=== PATIENT | female | born 1995 | race Hispanic/Latino ===

== ENCOUNTER 2018-09-18 09:39 | Emergency (ER) | payer BC ==
[~2018-09-18] VITALS: Ht 154.9 cm; Wt 100.7 kg
--- OUTSIDE RECORDS SUMMARY | 2018-09-18 09:41 | XMS REPORT ---
Author Author [facility] Address Unknown Phone Unavailable Care Team Providers Care Buckshot Swage Operator Name Role Phone Unavailable Unavailable Problems This patient has no known problems. Allergies, Adverse Reactions, Alerts This patient has no known allergies or adverse reactions. Medications This patient has no known medications. Encounters Start Date/Time End Date/Time Encounter Type Admission Type Attending [facility] Care Facility Care Department Encounter ID 2018-09-18 06:34:00 2018-09-18 06:34:00 Emergency [facility] [id number] 2018-09-18 00:00:00 2018-09-18 00:00:00 Emergency [facility] [id number] 2016-11-21 00:00:00 2016-11-21 00:00:00 Outpatient [facility] [id number] 2016-10-24 00:00:00 2016-10-24 00:00:00 Outpatient [facility] [id number]
--- OUTSIDE RECORDS SUMMARY | 2018-09-18 09:41 | XMS REPORT | Clinical Summary ---
Author Author [facility] Organization [facility] Address Unknown Phone Unavailable Care Team Providers Care Crime Prevention Police Officer Name Role Phone Lucia Larsen REGULATORY AUDITOR PCP Allergies No Known Allergies Medications End Date Status Medication Sig Dispensed Refills Start Date Active ibuprofen (MOTRIN) 200 mg Take 2-3 200 30 tablet 0 tabletIndications: mg tablets 4 Headache(784.0) every 8-12 as needed for RICE pain. Take in the morning and repeat in evening.. Active topiramate (TOPAMAX) 50 Take 1 tablet 30 tablet 6 mg tabletIndications: by mouth at 4 Migraine bedtime nightly. Active hydrocortisone 1 % Apply to 28.35 g 0 topical creamIndications: affected area 4 Atopic dermatitis 2 times daily. Active desogestrel-ethinyl Take 1 tablet 84 Each 4 estradiol (VELIVET) by mouth 4 0.1/.125/.15-25 mg-mcg daily. tabletIndications: PCOS (polycystic ovarian syndrome), Irregular menstrual cycle, Morbid obesity, Acquired acanthosis nigricans Active norgestimate-ethinyl Take 1 tablet 84 tablet 4 estradiol (ORTHO by mouth 4 TRI-CYCLEN LO) daily. Auto 0.18/0.215/0.25 mg-25 mcg Sub for (28) tablet Velivet Active Problems Problem Noted Date Chest pain in adult 07/26/2016 Elevated fasting lipid profile-- HDL and TGs high risk 04/11/2016 Tinnitus 04/01/2016 Normal hearing 04/01/2016 BMI (body mass index), pediatric, 95-99% for age 0611/05/2013 Acquired acanthosis nigricans 11/05/2013 Irregular menstrual cycle 11/05/2013 Allergic rhinitis, cause unspecified 09/02/2011 Menstrual cramps 09/02/2011 Conjunctivitis unspecified 09/02/2011 Eye problems 07/03/2007 Myopia 07/03/2007 Encounters Care Team Description Date Type Specialty 09/18/2018 Emergency Emergency Medicine 09/18/2018 Travel after 09/17/2017 Immunizations Name Dates Previously Given Next Due Acetaminophen Syrup 09/04/2006 160mg/5ml Btl DTaP Diphtheria, Tetanus, 04/11/2003, 01/14/2000, 08/11/1998, 05/11/1998, Acellular, Pertussis 02/20/1998 Hepatitis A Vaccine 04/11/2003, 11/19/2000 Hepatitis B Vaccine 04/11/2003, 11/29/2000, 05/23/2000 Hib Haemophilus 01/14/2000, 05/11/1998, 02/20/1998 Influenzae Type B Human Papillomavirus 09/30/2015, 06/17/2013, 09/02/2011 10/15/2013 Vaccine Influenza Vaccine 09/30/2015, 06/17/2013, 09/02/2011, 03/20/2007 MCV4 Meningococcal 09/30/2015, 12/30/2008 2013 Conjugate (Menactra) MENINGOCOCCAL Recombinant 12/03/2015, 09/30/2015 W/OMV VACCINE(BEXSERO) MMR Measles, Mumps, 12/25/1998 Rubella Vaccine Measles only 10/12/2001 PPD 09/04/2006 Poliovirus Ipv 04/11/2003, 10/12/2001, 08/11/1998, 05/11/1998, 02/20/1998 Tdap Tetanus, diphtheria, 12/30/2008 acellular pertussis Vaccine Varicella Vaccine Pedi In 03/20/2007, 04/11/2003 Clinic Family History Medical History Relation Name Comments Heart Maternal had heart attack at 52 years of age Grandfather Cancer Other Mothers grandmother had cancer Pulmonary Paternal Grandfather Relation Name Status Comments Brother Alive Father Alive Maternal Grandfather due to heart attack (Age 58) Maternal Grandmother Alive Mother Alive Other Paternal Grandfather due to aspiration (Age 52) Paternal Grandmother Alive Social History Date Tobacco Use Types Packs/Day Years Used Never Smoker Smokeless Tobacco: Never Used Tobacco Cessation: Counseling Given: No Alcohol Use Drinks/Week oz/Week Comments No Sex Assigned at Date Recorded Not on file Industry Job Start Date Occupation Not on file Not on file Not on file Travel End Travel History Travel Start No recent travel history available. Last Filed Vital Signs Time Taken Vital Sign Reading 09/18/2018 6:38 AM CDT Blood Pressure 118/81 09/18/2018 6:38 AM CDT Pulse 92 09/18/2018 6:38 AM CDT Temperature 37.2 C (99 F) 09/18/2018 6:38 AM CDT Respiratory Rate 18 09/18/2018 6:38 AM CDT Oxygen Saturation 96% - Inhaled Oxygen - Concentration - Weight - - Height - - Body Mass Index - Plan of Treatment Health Maintenance Due Date Last Done Comments IMM Influenza Seasonal 02/19/2019Feb to July (>/=19 yrs) Goals Goal Patient Associated Recent Progress Patient-Stat Author Goal Type Problems ed? Decrease soda or juice intake Diet No Rima Castellanos LD Reduce fast food intake Diet No Rima Castellanos LD Increase physical activity Lifestyle No Rima Castellanos LD Results Not on fileafter 09/17/2017 Insurance Type Payer Benefit Subscriber ID Effective Phone Address Plan / Dates Group BC/BS BC/BS PPO xxxxxxxxxxxx 2018-P [phone] [address] [place] [address] (Work)
[2018-09-18] MEDS ORDERED: KETOROLAC TROMETHAMINE 30 MG/ML VIAL IV STA (10:19)
[2018-09-18] MEDS ORDERED: ONDANSETRON HCL INJ 2MG/ML 2ML 2 MG/ML VIAL IV STA (10:19)
[2018-09-18] MEDS ORDERED: SODIUM CHLORIDE 0.9% 1000ML 1,000 ML IV SCH (10:30)
[2018-09-18] MEDS ORDERED: METRONIDAZOLE 500MG/NS 100ML 100 ML IV ONE (10:45)
--- NOTE | 2018-09-18 12:17 | Diagnostic Imaging Report ---
EXAM: Right upper quadrant abdominal ultrasound INDICATION: Right upper quadrant pain COMPARISON: None. TECHNIQUE: Transverse and longitudinal images of the right upper quadrant abdomen were obtained FINDINGS: Liver: Size: 15 cm in the right midclavicular line, normal Appearance: Increased echogenicity, smooth contour Mass: No focal masses Gallbladder: No distention, pericholecystic fluid, wall thickening, stone, or reported sonographic Glover's sign. Gallbladder wall measures 0.2 cm. There is minimal gallbladder sludge. Bile Ducts: Intrahepatic Ducts: No dilatation Extrahepatic Ducts: Common bile duct measures 0.3 cm, no dilatation Pancreas: Not well visualized. Kidney: The right kidney measures 10.4 cm without evidence of hydronephrosis or stone. Vessels: Aorta: Visualized portions are normal Inferior Vena Cava: Visualized portions are normal Main Portal Vein: 0.7 cm, normal size with hepatopetal flow. Free Fluid: No evidence of ascites. IMPRESSION: Hepatic steatosis. Minimal gallbladder sludge without sonographic evidence of cholelithiasis or cholecystitis. Signed by: Dr. Gill Conley MD on 09/18/2018 12:14 PM
[2018-09-18] MEDS ORDERED: CIPROFLOXACIN 500 MG TAB PO STA (12:40)
[2018-09-18 13:15] VITALS: BP 111/54
== END 2018-09-18 13:17 | disposition home or self-care (01) ==
LOC: FSED 09:39
DX: K80.20 Calculus of gallbladder without cholecystitis without obstruction (principal); R10.11 Right upper quadrant pain; R10.13 Epigastric pain; R11.2 Nausea with vomiting, unspecified
CPT/HCPCS: 76705; 81003; 81025; 99284; J1885; J2405; J7030

== ENCOUNTER 2018-10-03 20:25 | Observation (INO) | payer BC ==
[~2018-10-03] VITALS: Ht 154.9 cm; Wt 107.0 kg
--- OUTSIDE RECORDS SUMMARY | 2018-10-03 20:28 | XMS REPORT | Clinical Summary ---
Author Author [facility] Organization [facility] Address Unknown Phone Unavailable Care Team Providers Care Actuarial Consultant Name Role Phone Lucia Larsen MULTIFOCAL LENS ASSEMBLER PCP Allergies No Known Allergies Medications End [...] tablet Velivet Active Problems Problem Noted Date Dysmenorrhea 09/18/2018 Chest pain in adult 07/26/2016 Elevated fasting lipid profile-- HDL and TGs high risk 04/11/2016 Tinnitus 04/01/2016 Normal hearing 04/01/2016 Acquired acanthosis nigricans 11/05/2013 Irregular menstrual cycle 11/05/2013 Allergic rhinitis, cause unspecified 09/02/2011 Eye problems 07/03/2007 Myopia 07/03/2007 Resolved Problems Problem Noted Date Resolved Date BMI (body mass index), pediatric, 95-99% for age 0611/05/2013 09/18/2018 Menstrual cramps 09/02/2011 09/18/2018 Conjunctivitis unspecified 09/02/2011 09/18/2018 Encounters Care Team Description Date Type Specialty 09/18/2018 Emergency Emergency Medicine 09/18/2018 Travel after 10/02/2017 Immunizations Name Dates Previously Given Next Due [...] Body Mass Index - Plan of Treatment Care Team Description Date Type Specialty Robb Looney MD [address] [place] [address] stomach pain, blood when goes to the restroom. advised of sdc and amn. 10/11/2018 Office Visit Family Practice Health Maintenance Due Date Last Done Comments IMM Influenza Seasonal 02/19/2019Feb to July (>/=19 yrs) Goals Goal Patient Associated Recent Progress Patient-Stat Author Goal Type Problems ed? Decrease soda or juice intake Diet No Rima Castellanos LD Reduce fast food intake Diet No Rima Castellanos LD Increase physical activity Lifestyle No Rima Castellanos LD Results Not on fileafter 10/02/2017 Insurance Type Payer Benefit Subscriber ID Effective Phone Address Plan / Dates Group BC/BS BC/BS PPO xxxxxxxxxxxx 2018-P [phone] [id number] [place] [address] [facility] SELF-PAY SELF-PAY xxxxxx 2018-2 [address] [place] [address] Darlene Vines Self 1995 [address] ([address]) [address] [place] [address] (Work)
[2018-10-03] MEDS ORDERED: ONDANSETRON HCL INJ 2MG/ML 2ML 2 MG/ML VIAL IV STA (21:48)
[2018-10-03] MEDS ORDERED: MORPHINE SULFATE 5 MG/ML VIAL IV ONE (22:00)
[2018-10-03] MEDS ORDERED: ONDANSETRON HCL INJ 2MG/ML 2ML 2 MG/ML VIAL ONE (22:33)
--- NOTE | 2018-10-03 23:53 | Diagnostic Imaging Report ---
EXAM: Right Upper Quadrant Ultrasound INDICATION: Right upper quadrant pain COMPARISON: Right upper quadrant ultrasound 09/18/2018 TECHNIQUE: Transverse and longitudinal images of the right upper abdomen were obtained. FINDINGS: Exam limited by Liver: Size: 14.9 cm in the right midclavicular line, normal Appearance: Increased echogenicity, smooth contour Mass: No focal masses Gallbladder: Stones/Sludge: Small amount of sludge noted in the gallbladder lumen. No echogenic stones Wall: 0.2 cm Appearance: No wall thickening, pericholecystic fluid or hydrops. Sonographic Glover's Sign: Negative Bile Ducts: Intrahepatic Ducts: No dilatation Extrahepatic Ducts: Common bile duct measures 0.4 cm, no dilatation Pancreas: Visualized portions of the pancreatic neck are normal. Kidneys: Length: Right 10.4 cm Echogenicity: Normal Collecting System: No hydronephrosis Stone: None Cyst/Mass: None Vessels: Aorta: Visualized portions are normal Inferior Vena Cava: Visualized portions are normal Main Portal Vein: 0.7 cm, normal size with hepatopetal flow. Free Fluid: No ascites or pleural effusion IMPRESSION: 1. Small amount of sludge in the gallbladder lumen. No echogenic stones or sonographic evidence of cholecystitis. No significant interval change since the prior exam performed approximately 2 weeks ago. 2. Hepatic steatosis. Signed by: Dr. Maurice Suarez M.D. on 10/03/2018 11:50 PM
[2018-10-04] VITALS (9 sets, daily range): BP systolic 101–126; BP diastolic 61–86
[2018-10-04] MEDS ORDERED: ONDANSETRON HCL INJ 2MG/ML 2ML 2 MG/ML VIAL IV PRN (00:30)
--- OUTSIDE RECORDS SUMMARY | 2018-10-04 00:36 | XMS REPORT | Clinical Summary ---
Author Author [facility] Organization [facility] Address Unknown Phone Unavailable Care Team Providers Care Supervisor Packing Name Role Phone Lucia Larsen DOCK GUARD PCP Allergies No Known Allergies Medications End [...] 09/18/2018 Emergency Emergency Medicine 09/18/2018 Travel after 10/03/2017 Immunizations Name Dates Previously Given Next Due [...] Description Date Type Specialty Robb Looney MD [address] [place] [address] stomach pain, blood when goes [...] Rima Castellanos LD Results Not on fileafter 10/03/2017 Insurance Type Payer Benefit Subscriber ID Effective Phone Address Plan / Dates Group BC/BS BC/BS PPO xxxxxxxxxxxx 2018-P [phone] [place] [address] [facility] SELF-PAY SELF-PAY xxxxxx 2018-2 [address] [place] [address] Darlene Vines Self 1995 [address] ([address]) [address] [place] [address] (Work)
--- NOTE | 2018-10-04 00:59 | NUR ---
[facility] CALLED FOR TRANSPORT
[2018-10-04] MEDS: SODIUM CHLORIDE 0.9% 1000ML 1,000 ML IV SCH ×3 (02:45→16:19)
--- NOTE | 2018-10-04 02:45 | NUR ---
RECEIVED PATIENT IN STABLE CONDITION, NO DISTRESS NOTED. SHE IS A0X3, VITALS IN GOOD CONDITION, AND STATES PAIN IS CONTROLLABLE. THE PATIENT VOICES UNDERSTANDING OF NPO ORDER AND WILL COMPLY. IV IS PATENT AND INTACT, CALL LIGHT WITHIN REACH, AND WILL CONTINUE TO MONITOR.
[2018-10-04] MEDS: PIPER-TAZ 3.375 GM 50 ML IV SCH ×3 (05:28→22:50)
[2018-10-04] MEDS ORDERED: HYDRALAZINE HCL 20 MG/ML VIAL IV PRN (07:45)
[2018-10-04] MEDS ORDERED: ACETAMINOPHEN 325 MG TAB PO PRN (07:45)
[2018-10-04 08:15] LABS: BASOPHILS # (AUTO) 0.1 (0.0-0.1); BASOPHILS % 0.5 % (0.0-1.0); EOSINOPHILS # (AUTO) 0.2 (0.0-0.4); EOSINOPHILS % 1.6 % (0.0-6.0); HEMATOCRIT 41.7 % (34.2-44.1); HEMOGLOBIN 13.9 g/dL (12.0-16.0); LYMPHOCYTES # (AUTO) 3.9 (1.0-3.2); LYMPHOCYTES % 31.9 % (18.0-39.1); MEAN CORPUSCULAR HEMOGLOBIN 28.7 pg (28-32); MEAN CORPUSCULAR HGB CONC 33.3 g/dL (31-35); MEAN CORPUSCULAR VOLUME 86.2 fL (81-99); MONOCYTES # (AUTO) 0.8 (0.2-0.8); MONOCYTES % 6.2 % (4.4-11.3); NEUTROPHILS # (AUTO) 7.2 (2.1-6.9); NEUTROPHILS % 59.3 % (38.7-80.0); PLATELET COUNT 276 x10e3/uL (140-360); RED BLOOD COUNT 4.84 x10e6/uL (3.6-5.1); RED CELL DISTRIBUTION WIDTH 13.2 % (11.7-14.4)
[2018-10-04] MEDS: FAMOTIDINE 20 MG/2 ML VIAL IV SCH ×2 (08:32→16:30)
[2018-10-04 09:05] LABS: ANION GAP 10.7 mmol/L (8-16); BLOOD UREA NITROGEN 7 mg/dL (7-26); BUN/CREATININE RATIO 10 (6-25); CALCIUM 9.2 mg/dL (8.4-10.2); CARBON DIOXIDE 26 mmol/L (22-29); CHLORIDE 104 mmol/L (98-107); CREATININE, SERUM 0.67 mg/dL (0.57-1.11); EST GLOMERULAR FILTRATION RATE > 60 ML/MIN (60-); GLUCOSE 100 mg/dL (74-118); MAGNESIUM 2.3 MG/DL (1.3-2.1); POTASSIUM 3.7 mmol/L (3.5-5.1); SODIUM 137 mmol/L (136-145)
[2018-10-04] MEDS ORDERED: FENTANYL CITRATE/PF 100MCG/2 ML INJ ONE (14:17)
[2018-10-04] MEDS ORDERED: MIDAZOLAM HCL 2 MG/2 ML VIAL ONE (14:17)
--- NOTE | 2018-10-04 14:18 | NUR ---
patient back from Hepato biliary scan, stable
[2018-10-04] MEDS ORDERED: BUPIVACAINE 0.25%/EPI 30ML SDV INJ ONE (14:25)
[2018-10-04] MEDS ORDERED: SEVOFLURANE INHAL SOLN 250 ML PEN BTL ONE (14:40)
[2018-10-04] MEDS ORDERED: LIDOCAINE HCL 2% LOCAL INJ 5 ML SDV VIAL INJ ONE (14:40)
[2018-10-04] MEDS ORDERED: KETOROLAC TROMETHAMINE 30 MG/ML VIAL ONE (14:40)
[2018-10-04] MEDS ORDERED: NEOSTIGMINE 5 MG/5ML SYR ONE (14:40)
[2018-10-04] MEDS ORDERED: ONDANSETRON HCL INJ 2MG/ML 2ML 2 MG/ML VIAL ONE (14:40)
[2018-10-04] MEDS ORDERED: ROCURONIUM BROMIDE 10 MG/ML 5ML VIAL ONE (14:40)
[2018-10-04] MEDS ORDERED: DEXAMETHASONE SOD PHOS INJ 4 MG/ML VIAL ONE (14:40)
[2018-10-04] MEDS ORDERED: PROPOFOL IV EMULSION 10 MG/ML 20 ML VIAL ONE (14:40)
[2018-10-04] MEDS ORDERED: ATROPINE SULFATE 1 MG/ML VIAL ONE (14:40)
[2018-10-04] MEDS: MORPHINE SULFATE INJ 4 MG/ML INJ 1ML IV PRN (15:07)
--- NOTE | 2018-10-04 15:21 | NUR ---
patient off the unit for surgery, stable
--- NOTE | 2018-10-04 16:32 | Diagnostic Imaging Report ---
Hepatobiliary Scan with Gallbladder Ejection Fraction Clinical information: 22 F with abdominal pain associated with nausea, vomiting and diarrhea Technique: Following intravenous administration of 6.6 millicuries of Tc-99m mebrofenin, dynamic images of the abdomen in the anterior projection were obtained through 60 minutes. Sincalide (CCK analog) 2.0 micrograms was administered intravenously over 30 minutes with additional imaging for determination of gallbladder ejection fraction. Discussion: Perfusion of the liver is normal. Extraction of tracer by the liver parenchyma is normal. Tracer appears promptly within the biliary tract. The gallbladder begins to fill by 42 minutes post injection of tracer and fills adequately. Tracer is seen in the small bowel by 10 minutes. The gallbladder ejection fraction with sincalide is 30% (normal greater than 40%). Impression: 1. Filling of the gallbladder excludes acute cystic duct obstruction/acute cholecystitis. 2. The decreased gallbladder ejection fraction of 30% supports the clinical diagnosis of chronic cholecystitis/gallbladder dyskinesia. Signed by: Dr. Kellee Bermudez M.D. on 10/04/2018 4:29 PM
--- NOTE | 2018-10-04 18:24 | NUR ---
Recvd patient from PACU, AAOx3, 4 trochar site on the abdomen, bandage is intact , abdomen is soft. not in any distress, call light in reach, encouraged her to use that for any assistance, side rails up, bed locked, lowest position. keep monitoring
--- NOTE | 2018-10-04 19:00 | NUR ---
received report from day nurse. patient is resting in bed. mother is by bedside. patient denies pain or discomfort. bed is in the lowest position and call gaona is within reach. will continue to monitor patient's care.
--- NOTE | 2018-10-04 22:31 | Consultation ---
DATE OF CONSULTATION: 10/04/2018 CHIEF COMPLAINT: Abdominal pain. HISTORY OF PRESENT ILLNESS: The patient is a 22-year-old female with recurrent epigastric right upper quadrant pain radiating to the back with nausea. No vomiting. This last episode occurred yesterday. The patient admits to some fatty food intolerance. PAST MEDICAL HISTORY: Unremarkable. PAST SURGICAL HISTORY: Negative. ALLERGIES: SHE HAS NO DRUG ALLERGIES. SOCIAL HABITS: Denies smoking or alcohol abuse. REVIEW OF SYSTEMS: No chest pain, shortness of breath, or cough. PHYSICAL EXAMINATION: VITAL SIGNS: Stable. Afebrile. GENERAL: She is awake, alert, in moderate discomfort. HEENT: Sclerae are nonicteric. NECK: Supple. LUNGS: Clear. HEART: Regular rate and rhythm. ABDOMEN: Soft with mild guarding in the right upper quadrant without rebound. EXTREMITIES: Without cyanosis or edema. LABORATORY DATA: White cell count of 12 and hemoglobin of 14. Creatinine of 0.7. Ultrasound of the gallbladder has shown sludge in the gallbladder lumen. ASSESSMENT: Sludge in gallbladder, likely cholecystitis with recurrent attacks. PLAN: Recommended laparoscopic cholecystectomy. Attendant risks discussed. Tristan Carpenter MD DNJaya/MODL /[id number]
--- NOTE | 2018-10-04 23:36 | Operative Report ---
DATE OF PROCEDURE: 10/04/2018 SURGEON: Tristan Carpenter MD PREOPERATIVE DIAGNOSIS: Cholecystitis. POSTOPERATIVE DIAGNOSIS: Cholecystitis. PROCEDURE: Laparoscopic cholecystectomy. MATERIALS ASSOCIATE: None. ANESTHESIA: General endotracheal. INDICATION: The patient is a 22-year-old female with recurrent epigastric pain and sludge in the gallbladder. The patient consented for a laparoscopic cholecystectomy. Attendant risks discussed. PROCEDURE FINDING: Chronic cholecystitis. DESCRIPTION OF PROCEDURE: The patient was brought to the OR, intubated. The abdomen was prepped with alcohol and draped in sterile fashion. An infraumbilical incision was made and a 10 mm port inserted, insufflation then began under direct vision other port placed in the midepigastric and right upper quadrant. Gallbladder chronically inflamed and distended. Fundus retracted in cephalad direction. Next, the gallbladder retracted laterally. With blunt and sharp dissection, we isolated cystic artery triple clipped and divided. The cystic duct was dissected down to the junction with the common bile duct and cystic duct is triple clipped approximately 1 cm away from the junction and cystic duct divided between clips. The gallbladder detached from the liver with cautery and taken out through umbilical incisions. Operative field was then irrigated. Hemostasis achieved. All ports removed under direct vision. Fascia closed with 0 Vicryl. Skin closed with subcuticular stitch. The patient was extubated and transported to recovery room. ESTIMATED BLOOD LOSS: 5 mL. Tristan Carpenter MD DNJaya/MODL /[id number]
[2018-10-05] VITALS (8 sets, daily range): BP systolic 92–135; BP diastolic 53–77
[2018-10-05] MEDS: SODIUM CHLORIDE 0.9% 1000ML 1,000 ML IV SCH ×4 (00:19→21:53)
[2018-10-05 04:15] LABS: BASOPHILS % 0.3 % (0.0-1.0); EOSINOPHILS # (AUTO) 0.1 (0.0-0.4); EOSINOPHILS % 0.9 % (0.0-6.0); HEMATOCRIT 41.3 % (34.2-44.1); HEMOGLOBIN 13.9 g/dL (12.0-16.0); LYMPHOCYTES # (AUTO) 1.6 (1.0-3.2); LYMPHOCYTES % 12.9 % (18.0-39.1); MEAN CORPUSCULAR HEMOGLOBIN 28.5 pg (28-32); MEAN CORPUSCULAR HGB CONC 33.7 g/dL (31-35); MEAN CORPUSCULAR VOLUME 84.8 fL (81-99); MONOCYTES # (AUTO) 0.4 (0.2-0.8); NEUTROPHILS # (AUTO) 10.3 (2.1-6.9); NEUTROPHILS % 82.5 % (38.7-80.0); PLATELET COUNT 291 x10e3/uL (140-360); RED BLOOD COUNT 4.87 x10e6/uL (3.6-5.1)
[2018-10-05 04:38] LABS: ANION GAP 14.3 mmol/L (8-16); BLOOD UREA NITROGEN 5 mg/dL (7-26); BUN/CREATININE RATIO 8 (6-25); CALCIUM 9.7 mg/dL (8.4-10.2); CARBON DIOXIDE 19 mmol/L (22-29); CHLORIDE 106 mmol/L (98-107); CREATININE, SERUM 0.62 mg/dL (0.57-1.11); EST GLOMERULAR FILTRATION RATE > 60 ML/MIN (60-); GLUCOSE 116 mg/dL (74-118); MAGNESIUM 2.3 MG/DL (1.3-2.1); POTASSIUM 4.3 mmol/L (3.5-5.1); SODIUM 135 mmol/L (136-145)
[2018-10-05] MEDS: PIPER-TAZ 3.375 GM 50 ML IV SCH ×3 (05:30→21:53)
--- NOTE | 2018-10-05 06:57 | NUR ---
report given to day nurse. patient is resting in bed. bed is in lowest position and call gaona is within reach. will continue to monitor patient.
[2018-10-05] MEDS: FAMOTIDINE 20 MG/2 ML VIAL IV SCH ×2 (09:06→16:45)
[2018-10-05] MEDS: MORPHINE SULFATE INJ 4 MG/ML INJ 1ML IV PRN (22:08)
[2018-10-06 04:30] LABS: BASOPHILS # (AUTO) 0.1 (0.0-0.1); BASOPHILS % 0.5 % (0.0-1.0); EOSINOPHILS # (AUTO) 0.1 (0.0-0.4); EOSINOPHILS % 0.6 % (0.0-6.0); HEMATOCRIT 34.4 % (34.2-44.1); HEMOGLOBIN 11.1 g/dL (12.0-16.0); LYMPHOCYTES # (AUTO) 4.3 (1.0-3.2); LYMPHOCYTES % 34.5 % (18.0-39.1); MEAN CORPUSCULAR HEMOGLOBIN 28.8 pg (28-32); MEAN CORPUSCULAR HGB CONC 32.3 g/dL (31-35); MEAN CORPUSCULAR VOLUME 89.4 fL (81-99); MONOCYTES % 7.7 % (4.4-11.3); NEUTROPHILS % 56.3 % (38.7-80.0); PLATELET COUNT 218 x10e3/uL (140-360); RED BLOOD COUNT 3.85 x10e6/uL (3.6-5.1); RED CELL DISTRIBUTION WIDTH 13.5 % (11.7-14.4)
[2018-10-06 05:00] LABS: ANION GAP 10.4 mmol/L (8-16); BLOOD UREA NITROGEN 6 mg/dL (7-26); BUN/CREATININE RATIO 11 (6-25); CALCIUM 7.3 mg/dL (8.4-10.2); CARBON DIOXIDE 18 mmol/L (22-29); CHLORIDE 115 mmol/L (98-107); CREATININE, SERUM 0.54 mg/dL (0.57-1.11); EST GLOMERULAR FILTRATION RATE > 60 ML/MIN (60-); GLUCOSE 93 mg/dL (74-118); MAGNESIUM 1.8 MG/DL (1.3-2.1); POTASSIUM 3.4 mmol/L (3.5-5.1); SODIUM 140 mmol/L (136-145)
[2018-10-06] MEDS: PIPER-TAZ 3.375 GM 50 ML IV SCH (05:01)
[2018-10-06 08:00] VITALS: BP 111/65
[2018-10-06] MEDS: FAMOTIDINE 20 MG/2 ML VIAL IV SCH (08:18)
[2018-10-06] MEDS: SODIUM CHLORIDE 0.9% 1000ML 1,000 ML IV SCH (08:19)
[2018-10-06] MEDS ORDERED: POTASSIUM CHLORIDE 20 MEQ TAB CR PO ONE (11:01)
[2018-10-06] MEDS ORDERED: TYLENOL WITH C1 EACH PO (11:03)
--- NOTE | 2018-10-07 06:42 | Discharge Summary ---
ADMISSION DIAGNOSES: Gallbladder sludge with cholecystitis, morbid obesity. DISCHARGE DIAGNOSES: Gallbladder sludge with cholecystitis, morbid obesity. HISTORY: None. SURGICAL HISTORY: None. FAMILY HISTORY: The patient's mom has diabetes. The patient's grandma has cancer. SOCIAL HISTORY: None. HOSPITAL COURSE: A 22-year-old female complains of intermittent cramping and sharp epigastric pain that radiated to the right upper quadrant that began six months ago. She had associated nausea, vomiting, and diarrhea. When these episodes would start, she would change her diet to less spicy foods as she says the symptoms would could better. She went to the ER a week before her admission and I told her to follow up with the surgeon and discharged her home with pain medicine and unknown antibiotic and nausea medicine. The night before admission, the pain returned, so she came to the ER. The pain was improved with morphine. Nothing worsened the symptoms. On admission, the patient had an ultrasound of the abdomen which showed small amount of sludge in the gallbladder lumen. No echogenic stones or sonographic evidence of cholecystitis, hepatic steatosis. The patient then had HIDA scan ordered that showed a decreased EF of 30% to support the diagnoses of gallbladder dyskinesia. Surgery was consulted. The patient was made n.p.o. and IV fluids started. The patient had a laparoscopic cholecystectomy on 10/04/2018. The patient tolerated the procedure well and was able to advance her diet. Her pain is well controlled. She will follow up with primary care in 1 to [address] Carpenter within the week. The patient understands discharge instructions and agrees to plan. Dictated by Valeri Bass NP MD VERONICA Valle/MODJaya /[id number]
== END 2018-10-06 11:58 | disposition home or self-care (01) ==
LOC: FSED 20:25 → ERHOLD 10-04 00:33 → IMCU 10-04 02:07
PROVIDERS: ADMIT Internal Medicine; ATTEND Internal Medicine
DX: K81.1 Chronic cholecystitis (principal); E66.01 Morbid (severe) obesity due to excess calories; Z68.41 Body mass index [BMI] 40.0-44.9, adult; E87.1 Hypo-osmolality and hyponatremia; E83.41 Hypermagnesemia
CPT/HCPCS: 36415 ×3; 47562; 76705; 78227; 80048 ×3; 80053; 80061; 81003; 81025; 83036; 83690; 83735 ×3; 83880; 84702; 85025 ×3; 88304; 99284; A9537; G0378 ×3; J0461; J1100; J1885; J2001; J2250; J2270 ×3; J2405 ×2; J2543 ×3; J2704; J7030 ×2